=== PATIENT | female | born 1965 | race Caucasian/White ===

== ENCOUNTER 2024-01-27 07:52 | Outpatient (CLI) | payer OTHER, SELFPAY | END 2024-01-27 07:53 | disposition home or self-care (01) | PROVIDERS: Visit Provider Family Medicine | DX: S49.92XA Unspecified injury of left shoulder and upper arm, initial encounter (principal); S29.9XXA Unspecified injury of thorax, initial encounter; V49.40XA Driver injured in collision with unspecified motor vehicles in traffic accident, initial encounter; Y92.410 Unspecified street and highway as the place of occurrence of the external cause | CPT/HCPCS: A0425; A0429 ==

== ENCOUNTER 2025-04-26 15:36 | Outpatient (CLI) | payer OTHER, SELFPAY ==
--- NOTE | 2025-04-26 15:30 | MR_ITS ---
[address] [address] Phone:?[phone] Fax:?[phone] Referring Physician Information: Scottie Palacios M.D. [address] [facility] [address] Phone:?[phone] Fax:?[phone] Patient:Juan Luis Branch D.O.B:?1965 Sex:?Female Phone:?[phone] [facility] MRN:?[id number] Exam Date:?04/26/2025 EXAM: MRI of the RIGHT ELBOW, without contrast CLINICAL INFORMATION: Female, 59 years old, with right elbow pain. INDICATION: Evaluate for internal derangement. PRIOR SURGERY: None reported. PLAIN FILMS: None available. COMPARISONS: No prior MRIs available. TECHNICAL INFORMATION: Using a 1.5T MR scanner and a localizing surface coil: coronals: T1, T2, PD, STIR sagittals: PD, T2 axials: PD, T2 SEDATION: None CONTRAST: None FINDINGS: Elbow joint: Effusion: Physiologic. Ganglion cyst: None. Radiohumeral plica: No pathologic thickening or enlargement. Osteochondral surfaces: No osteochondral abnormality. Loose bodies: No demonstrable loose bodies. Bursae: No pathologic olecranon or bicipitoradial bursal thickening/bursitis. Bones: Humerus: No fracture, osteochondritis dissecans or marrow edema/pathology. Radius: No fracture or marrow edema. Ulna: No fracture or marrow edema. Myotendinous structures: Biceps: Intact, without tendinopathy or tear. Triceps: Intact posterior tendinous and anterior muscular insertions and lateral aponeurotic component, without tendinopathy, strain or tear. Brachialis: No strain/tear. Supinator: No strain/tear. Forearm extensors: Mild common extensor tendinopathy, without tendon tear or muscle atrophy. Forearm flexors: Mild common flexor tendinopathy, without tendon tear or muscle atrophy. Ligaments: Medial ulnar collateral: No sprain or disruption. Radial collateral proper: Normal. Lateral ulnar collateral: Normal. Annular: Normal. Nerves: Ulnar: Normal, without appreciable edema, thickening or mass. No anconeus epitrochlearis accessory muscle over the cubital tunnel. Median: Normal. Radial: Normal. IMPRESSION: 1. Mild common flexor and common extensor tendinopathy, without tear. 2. No chondromalacia or osteochondral lesion/defect. 3. No ligamentous sprain/tear. 4. No fracture or osseous stress reaction. 5. No other myotendinous abnormality. BC Electronically signed on 04/27/2025 7:48:00 AM by Truong Acosta M.D.
== END 2025-04-26 15:37 | disposition home or self-care (01) ==
LOC: MRI 15:39
PROVIDERS: PCP Family Medicine; Visit Provider Orthopaedic Surgery Sports Medicine
DX: M25.521 Pain in right elbow (principal); M24.121 Other articular cartilage disorders, right elbow; Z02.6 Encounter for examination for insurance purposes
CPT/HCPCS: 73221